=== PATIENT | female | born 1965 | race Caucasian/White ===

== ENCOUNTER → 2017-03-06 | Outpatient (CLI) | payer OTHER ==
[~2017-03-06] MED LIST: DAPA1TAB5 PO; LOSA100T6 PO; MELO-184 PO; OMEP40CA6 PO; OMNIPAQUE 350 MG/ML, 150 ML BOTTLE ONE; PRAV80TA2 PO
== END | disposition home or self-care (01) ==
LOC: CFH 07:35
PROVIDERS: ATTEND Internal Medicine Hematology & Oncology
DX: K76.0 Fatty (change of) liver, not elsewhere classified (principal); N28.1 Cyst of kidney, acquired; N28.81 Hypertrophy of kidney; E27.8 Other specified disorders of adrenal gland; N83.202 Unspecified ovarian cyst, left side; N83.201 Unspecified ovarian cyst, right side; Q89.09 Congenital malformations of spleen; J84.10 Pulmonary fibrosis, unspecified; M47.896 Other spondylosis, lumbar region; M47.894 Other spondylosis, thoracic region; C64.2 Malignant neoplasm of left kidney, except renal pelvis; R22.1 Localized swelling, mass and lump, neck; Z90.5 Acquired absence of kidney
CPT/HCPCS: 70491; 71260; 74177; Q9967

== ENCOUNTER → 2018-03-08 | Outpatient (CLI) | payer OTHER ==
[~2018-03-08] MED LIST changes: -MELO-184 PO; +MELO15TA24 PO
== END | disposition home or self-care (01) ==
LOC: CFH 08:45
PROVIDERS: ATTEND Internal Medicine Hematology & Oncology
DX: N83.201 Unspecified ovarian cyst, right side (principal); N28.1 Cyst of kidney, acquired; K44.9 Diaphragmatic hernia without obstruction or gangrene; C64.9 Malignant neoplasm of unspecified kidney, except renal pelvis; C54.2 Malignant neoplasm of myometrium
CPT/HCPCS: 70491; 71260; 74177; Q9967